=== PATIENT | female | born 1990 | race Caucasian/White ===

== ENCOUNTER → 2016-03-19 | Outpatient (REF) | payer BC ==
[~2016-03-19] MED LIST: ACET50TA PO; IBUP-1114 PO; IBUP80TA PO; LABE20TAB PO; PREN1TAB11 PO
== END | disposition home or self-care (01) ==
LOC: M LAB REF 13:33
PROVIDERS: ATTEND Advanced Practice Midwife
DX: Z12.4 Encounter for screening for malignant neoplasm of cervix (principal)

== ENCOUNTER → 2018-02-25 | Outpatient (REF) | payer BC ==
[~2018-02-25] MED LIST changes: -ACET50TA PO; +MAPA500T2 PO
[2018-02-25 14:05] LABS: RHEUMATOID FACTOR QUANT < 10.0 IU/ML (<15.0); TOTAL PROTEIN 7.2 GM/DL (6.4-8.2)
[2018-02-25 14:15] LABS: FOLATE 16.8 NG/ML; VITAMIN B12 LEVEL 727 PG/ML
[2018-02-27 13:45] LABS: ALBUMIN 4.23 GM/DL (3.29-5.55); ALBUMIN % 58.7 % (55.8-66.1); ALPHA-1-GLOBULIN % 3.9 % (2.9-4.9); ALPHA-1-GLOBULINS 0.28 GM/DL (0.17-0.41); ALPHA-2-GLOBULINS 0.63 GM/DL (0.42-0.99); ALPHA-2-GLOBULINS % 8.8 % (7.1-11.8); BETA-1-GLOBULINS 0.48 GM/DL (0.28-0.60); BETA-1-GLOBULINS % 6.6 % (4.7-7.2); BETA-2-GLOBULINS 0.38 GM/DL (0.19-0.55); BETA-2-GLOBULINS % 5.3 % (3.2-6.5); GAMMA GLOBULIN % 16.7 % (11.1-18.8)
[2018-02-28 16:26] LABS: ANTINUCLEAR ANTIBODIES DIRECT Negative (Negative); VITAMIN B1 LEVEL WHOLE BLOOD 158.1 nmol/L (66.5-200.0); VITAMIN B6,PYRIDOXAL PHOSPHATE 10.6 ug/L (2.0-32.8); VITAMIN E(ALPHA TOCOPHEROL) 8.2 mg/L (5.9-19.4); VITAMIN E(GAMMA TOCOPHEROL) 1.7 mg/L (0.7-4.9)
== END ==
LOC: M LABNEURO 08:46
PROVIDERS: ATTEND Psychiatry & Neurology Neurology
DX: G43.909 Migraine, unspecified, not intractable, without status migrainosus (principal)

== ENCOUNTER → 2018-10-22 | Outpatient (REF) | LOC: M LAB LCGH 12:32 | PROVIDERS: ATTEND Nurse Practitioner Family | DX: D48.9 Neoplasm of uncertain behavior, unspecified (principal) ==

== ENCOUNTER → 2019-04-21 | Outpatient (CLI) | payer BC | LOC: M PLALAB 10:17 | PROVIDERS: ATTEND Advanced Practice Midwife | DX: Z13.79 Encounter for other screening for genetic and chromosomal anomalies (principal) | CPT/HCPCS: 36415; G0123 ==

== ENCOUNTER → 2021-06-28 | Outpatient (REF) | payer BC, OTHER | LOC: M SFHCWAGY 17:39 | PROVIDERS: ATTEND Specialist | DX: Z01.419 Encounter for gynecological examination (general) (routine) without abnormal findings (principal) ==

== ENCOUNTER 2021-09-13 12:22 | Day surgery (SDC) | payer OTHER ==
[~2021-09-13] VITALS: Ht 167.6 cm; Wt 92.4 kg
[~2021-09-13 12:22] MED LIST changes: +KETOROLAC 60MG 2ML VIAL As Ordered ONE; +LIDOCAINE 2% 100MG/5ML SDV (FOR ANES.) As Ordered ONE; +MIDAZOLAM INJ 2MG/2ML VIAL (J2250 PER 1MG) As Ordered ONE; +ONDANSETRON 4MG 2ML VIAL As Ordered ONE; +dexameTHASONE 4 MG/ML 1ML VIAL (J1100 PER 1MG) As Ordered ONE; +fentaNYL 100 MCG/2 ML INJECTION As Ordered ONE; +propofoL 200 MG/20 ML VIAL As Ordered ONE
[2021-09-13 12:48] LABS: HEMOGLOBIN 14.2 g/dl (12.0-15.5); MEAN CORPUSCULAR HEMOGLOBIN 30.1 pg (27.0-33.0); MEAN CORPUSCULAR HGB CONC 33.8 g/dl (32.0-36.5); MEAN CORPUSCULAR VOLUME 89.2 fl (80.0-96.0); PLATELET COUNT, AUTOMATED 227 10^3/uL (150-450); RED BLOOD COUNT 4.71 10^6/uL (4.00-5.40); WHITE BLOOD COUNT 9.9 10^3/uL (4.0-10.0)
[2021-09-13] MEDS ORDERED: DOXYCYCLINE HYCLATE 100 MG in D5W MINI-BAG PLUS 100 ML IV ONE (13:15)
[2021-09-13] MEDS ORDERED: LR 1,000 ML IV SCH ×3 (13:20→19:15)
[2021-09-13] MEDS ORDERED: METHYLERGONOVINE MALEATE 0.2 MG/ML VIAL (J2210) As Ordered ONE (18:45)
[2021-09-13] MEDS ORDERED: PERCOCET 5MG/325MG TAB PO PRN (19:00)
[2021-09-13] MEDS ORDERED: MORPHINE 2 MG/ML 1ML VIAL IV PRN (19:00)
[2021-09-13] MEDS ORDERED: ONDANSETRON 4MG 2ML VIAL IV PRN (19:00)
[2021-09-13] MEDS ORDERED: fentaNYL 100 MCG/2 ML INJECTION IV PRN (19:00)
[2021-09-13] MEDS ORDERED: PERCOCET PO (19:23)
[2021-09-13 19:50] VITALS: BP 134/70
[2021-09-13] MEDS ORDERED: DOXYCYCLINE HYCLATE 100MG TABLET PO ONE (20:00)
[2021-09-13] MEDS ORDERED: fentaNYL 100 MCG/2 ML INJECTION As Ordered ONE (21:44)
== END 2021-09-13 19:57 | disposition home or self-care (01) ==
LOC: M SDC 12:22
PROVIDERS: ATTEND Obstetrics & Gynecology
DX: O02.1 Missed abortion (principal); O10.911 Unspecified pre-existing hypertension complicating pregnancy, first trimester; Z79.899 Other long term (current) drug therapy
CPT/HCPCS: 36415; 59820; 85027; 86850; 86900; 86901; 87426; 88304; J1100; J1885; J2210; J2250; J2405; J3010

== ENCOUNTER → 2022-02-26 | Outpatient (CLI) | payer BC ==
[~2022-02-26] MED LIST changes: -KETOROLAC 60MG 2ML VIAL As Ordered ONE; -LIDOCAINE 2% 100MG/5ML SDV (FOR ANES.) As Ordered ONE; -MIDAZOLAM INJ 2MG/2ML VIAL (J2250 PER 1MG) As Ordered ONE; -ONDANSETRON 4MG 2ML VIAL As Ordered ONE; +PERCOCET PO; -dexameTHASONE 4 MG/ML 1ML VIAL (J1100 PER 1MG) As Ordered ONE; -fentaNYL 100 MCG/2 ML INJECTION As Ordered ONE; -propofoL 200 MG/20 ML VIAL As Ordered ONE
[2022-02-26 17:46] LABS: ALT/SGPT 35 U/L (7.0-40); AST/SGOT 23 U/L (<34); BILIRUBIN,TOTAL 0.3 MG/DL (0.3-1.2); CREATININE FOR GFR 0.44 MG/DL (0.55-1.30); GLOMERULAR FILTRATION RATE > 60.0 (>60); LDH LACTATE DEHYDROGENASE 141 U/L (120-246)
[2022-02-26 18:06] LABS: TOTAL PROTEIN,RANDOM URINE 6.1 MG/DL (0.0-14.0)
[2022-02-26 18:07] LABS: HEMATOCRIT 40.1 % (36.0-47.0); HEMOGLOBIN 13.4 g/dl (12.0-15.5); MEAN CORPUSCULAR HEMOGLOBIN 29.4 pg (27.0-33.0); MEAN CORPUSCULAR HGB CONC 33.4 g/dl (32.0-36.5); MEAN CORPUSCULAR VOLUME 87.9 fl (80.0-96.0); PLATELET COUNT, AUTOMATED 235 10^3/uL (150-450); RED BLOOD COUNT 4.56 10^6/uL (4.00-5.40); WHITE BLOOD COUNT 8.7 10^3/uL (4.0-10.0)
[2022-02-26 19:08] LABS: GC DNA AMPLIFICATION NEGATIVE (NEGATIVE)
[2022-02-26 19:38] LABS: HIV 1&2 SCREEN CENTAUR NEGATIVE (NEGATIVE)
[2022-02-26 19:47] LABS: HEPATITIS C VIRUS ABY INDEX 0.2 INDEX (<0.8)
== END ==
LOC: M PLALAB 15:12
PROVIDERS: ATTEND Obstetrics & Gynecology
DX: O10.911 Unspecified pre-existing hypertension complicating pregnancy, first trimester (principal)